=== PATIENT | male | born 1970 | race Caucasian/White ===

== ENCOUNTER → 2016-08-30 | Outpatient (CLI) | payer OTHER, BC ==
[~2016-08-30] MED LIST: ATOR20TA59 PO; METF10002 PO; MULT-933 PO; ONDA4TAB7 PO; PANT20TA13 PO
--- NOTE | 2016-08-30 10:12 | DI ---
Indication: ITS.REASON: ARTHRITIS; CHRONIC LYMPHOCYTIC LEUKEMIA; DIABETES; PROCEDURE: ANKLE RIGHT 2 VIEW: Encounter: Initial Comparison: None Findings: There is no acute fracture, dislocation or malalignment identified. Chronic enthesopathic changes at the posterior calcaneus. Small inferior calcaneal spur. Tibiotalar joint space is maintained. Talar dome is intact. Impression: No acute osseous abnormality. .
== END ==
LOC: IMA 09:25
PROVIDERS: ATTEND Neuromusculoskeletal Medicine, Sports Medicine
DX: C91.10 Chronic lymphocytic leukemia of B-cell type not having achieved remission (principal); E11.9 Type 2 diabetes mellitus without complications; M19.91 Primary osteoarthritis, unspecified site